=== PATIENT | male | born 1980 | race Caucasian/White ===

== ENCOUNTER 2024-11-14 18:36 | Emergency (ER) | payer SELFPAY | END 2024-11-14 20:10 | disposition home or self-care (01) | LOC: MW.ED 18:36 | DX: Z76.0 Encounter for issue of repeat prescription (principal); Z79.899 Other long term (current) drug therapy; Z86.69 Personal history of other diseases of the nervous system and sense organs | CPT/HCPCS: 99281; 99283 ==